=== PATIENT | male | born 1955 | race Caucasian/White ===

== ENCOUNTER 2022-03-08 19:20 | Inpatient (IN) ==
[2022-03-08 19:44] LABS: Basophils % 0.5 % (0.0-0.8); Eosinophils # 0.1 10*3/uL (0.0-0.87); Eosinophils % 0.9 % (0.00-10.9); Hematocrit 39.2 VOL% (42.0-52.0); Hemoglobin 13.3 GM/DL (14.0-18.0); Immature Granulocytes % 0.5 %; Immature Granulocytes Absolute 0.04 #; Lymphocytes # 1.9 10*3/uL (1.4-4.0); Lymphocytes % 21.5 % (21.2-54.2); Mean Corpuscular HGB Conc 33.9 GM/DL (32-36); Mean Corpuscular Volume 90.5 FL (87-102); Monocytes # 0.8 10*3/uL (0.11-0.8); Neutrophils % 67.6 % (38.7-73.9); Platelet Count 277 T/CUMM (130-400); Red Blood Count 4.33 MC/CUMM (3.8-5.5); White Blood Count 8.7 T/CUMM (4-12)
[2022-03-08 19:57] LABS: INR 0.9; PT Patient Result 10.3 SECS (10.5-12.0); Partial Thromboplastin Time 23.4 SECS (23.8-32.1)
[2022-03-08 20:25] LABS: Albumin 3.5 G/DL (3.4-5.0); Calcium 9.5 MG/DL (8.5-10.1); Osmolality,Calculated 298.1 MOS/KG (273-304); Potassium 3.5 MMOL/L (3.5-5.1); Total Protein 6.7 G/DL (6.4-8.2)
[2022-03-08] MEDS ORDERED: PANTOPRAZOLE 40 MG VIAL IV ONE (23:51)
[2022-03-08] MEDS ORDERED: ACETAMINOPHEN 325 MG TABLET PO PRN (23:51)
[2022-03-08] MEDS ORDERED: DEXTROSE 10% 250 ML BAG IV PRN (23:51)
[2022-03-08] MEDS ORDERED: hydrALAZINE 20 MG/1 ML VIAL IV PRN (23:51)
[2022-03-08] MEDS ORDERED: GLUCAGON 1 MG VIAL IM PRN (23:51)
[2022-03-08] MEDS ORDERED: MORPHINE 2 MG/1 ML SYRINGE IV PRN (23:51)
[2022-03-08] MEDS ORDERED: ONDANSETRON 4 MG/2 ML VIAL IV PRN (23:51)
[2022-03-09] MEDS: LACTATED RINGERS 1,000 ML IV SCH ×2 (00:30→16:23)
[2022-03-09 05:15] LABS: Basophils % 0.7 % (0.0-0.8); Eosinophils # 0.1 10*3/uL (0.0-0.87); Eosinophils % 2.1 % (0.00-10.9); Hematocrit 34.7 VOL% (42.0-52.0); Hemoglobin 11.7 GM/DL (14.0-18.0); Immature Granulocytes % 0.2 %; Immature Granulocytes Absolute 0.01 #; Lymphocytes # 1.6 10*3/uL (1.4-4.0); Mean Corpuscular HGB Conc 33.7 GM/DL (32-36); Mean Corpuscular Volume 91.6 FL (87-102); Mean Platelet Volume 10.5 FL (9.6-12.0); Monocytes # 0.5 10*3/uL (0.11-0.8); Monocytes % 8.3 % (1.7-12.7); Neutrophils % 62.7 % (38.7-73.9); Platelet Count 221 T/CUMM (130-400); Red Blood Count 3.79 MC/CUMM (3.8-5.5); Red Cell Distribution Width 13.1 % (9.3-17.3); White Blood Count 6.1 T/CUMM (4-12)
[2022-03-09 05:31] LABS: Osmolality,Calculated 298.1 MOS/KG (273-304); Potassium 3.3 MMOL/L (3.5-5.1)
[2022-03-09] MEDS ORDERED: POTASSIUM CHLORIDE 20 MEQ TABLET PO PRN (07:36)
[2022-03-09] MEDS: PANTOPRAZOLE 40 MG VIAL IV SCH ×2 (08:34→21:01)
[2022-03-09] MEDS ORDERED: MAGNESIUM SULF RIDER 2 GM/50 ML PREMIX IV PRN (10:11)
[2022-03-09] MEDS ORDERED: MAGNESIUM SULF RIDER 4 GM/100 ML PREMIX IV PRN (10:11)
[2022-03-09 14:04] LABS: Hematocrit 34.1 VOL% (42.0-52.0); Hemoglobin 11.4 GM/DL (14.0-18.0)
[2022-03-09] MEDS: CALCIUM (CARBONATE)/VITAMIN D 600 MG-400 UNIT TABLET PO SCH (17:24)
[2022-03-09] MEDS: cefTRIAXone 2,000 MG in SODIUM CHLORIDE 0.9% 100 ML IV SCH (17:24)
[2022-03-09] MEDS: CETIRIZINE 10 MG TABLET PO SCH (20:58)
[2022-03-09] MEDS: DOCUSATE SODIUM 100 MG CAPSULE PO SCH (20:58)
[2022-03-09] MEDS: ATORVASTATIN 40 MG TABLET PO SCH (20:58)
[2022-03-10] MEDS: LACTATED RINGERS 1,000 ML IV SCH ×2 (03:10→21:28)
[2022-03-10 05:41] LABS: Basophils % 0.6 % (0.0-0.8); Eosinophils # 0.2 10*3/uL (0.0-0.87); Eosinophils % 3.2 % (0.00-10.9); Hematocrit 32.1 VOL% (42.0-52.0); Hemoglobin 10.6 GM/DL (14.0-18.0); Immature Granulocytes % 0.2 %; Immature Granulocytes Absolute 0.01 #; Lymphocytes # 1.4 10*3/uL (1.4-4.0); Lymphocytes % 30.8 % (21.2-54.2); Mean Corpuscular Volume 91.7 FL (87-102); Mean Platelet Volume 10.3 FL (9.6-12.0); Monocytes # 0.4 10*3/uL (0.11-0.8); Monocytes % 8.3 % (1.7-12.7); Neutrophils % 56.9 % (38.7-73.9); Platelet Count 205 T/CUMM (130-400); Red Cell Distribution Width 13.1 % (9.3-17.3); White Blood Count 4.7 T/CUMM (4-12)
[2022-03-10 05:57] LABS: Calcium 8.7 MG/DL (8.5-10.1); Potassium 3.7 MMOL/L (3.5-5.1)
[2022-03-10 06:02] LABS: Osmolality,Calculated 289.1 MOS/KG (273-304)
[2022-03-10] MEDS ORDERED: propofoL 200 MG/20 ML VIAL IV ONE (08:27)
[2022-03-10] MEDS ORDERED: ETOMIDATE 20 MG/10 ML VIAL IV ONE (08:27)
[2022-03-10] MEDS ORDERED: LIDOCAINE 2% 5 ML VIAL ONE (08:27)
[2022-03-10] MEDS: CALCIUM (CARBONATE)/VITAMIN D 600 MG-400 UNIT TABLET PO SCH ×2 (09:45→18:23)
[2022-03-10] MEDS: DOCUSATE SODIUM 100 MG CAPSULE PO SCH ×2 (09:45→21:03)
[2022-03-10] MEDS: amLODIPine 10 MG TABLET PO SCH (09:45)
[2022-03-10] MEDS: TAMSULOSIN 0.4 MG CAPSULE PO SCH (09:45)
[2022-03-10] MEDS: cefTRIAXone 2,000 MG in SODIUM CHLORIDE 0.9% 100 ML IV SCH (09:46)
[2022-03-10] MEDS: PANTOPRAZOLE 40 MG VIAL IV SCH ×2 (09:47→21:06)
[2022-03-10] MEDS ORDERED: BISACODYL 5 MG TABLET PO ONE (13:00)
[2022-03-10] MEDS ORDERED: POLYETHYLENE GLYCOL POWDER 255 GM BOTTLE PO ONE (18:00)
[2022-03-10] MEDS: CETIRIZINE 10 MG TABLET PO SCH (21:03)
[2022-03-10] MEDS: ATORVASTATIN 40 MG TABLET PO SCH (21:03)
[2022-03-11 05:12] LABS: Basophils % 0.9 % (0.0-0.8); Eosinophils # 0.2 10*3/uL (0.0-0.87); Hemoglobin 10.1 GM/DL (14.0-18.0); Immature Granulocytes % 0.2 %; Immature Granulocytes Absolute 0.01 #; Lymphocytes # 1.5 10*3/uL (1.4-4.0); Mean Corpuscular HGB Conc 33.7 GM/DL (32-36); Mean Corpuscular Volume 91.2 FL (87-102); Mean Platelet Volume 10.4 FL (9.6-12.0); Monocytes # 0.4 10*3/uL (0.11-0.8); Monocytes % 8.4 % (1.7-12.7); Neutrophils % 53.5 % (38.7-73.9); Platelet Count 186 T/CUMM (130-400); Red Blood Count 3.29 MC/CUMM (3.8-5.5); White Blood Count 4.5 T/CUMM (4-12)
[2022-03-11 05:18] LABS: INR 0.9; PT Patient Result 10.4 SECS (10.5-12.0)
[2022-03-11 05:26] LABS: Calcium 8.6 MG/DL (8.5-10.1); Potassium 3.6 MMOL/L (3.5-5.1)
[2022-03-11] MEDS ORDERED: LACTATED RINGERS 1,000 ML IV SCH (08:00)
[2022-03-11] MEDS: LACTATED RINGERS 1,000 ML IV SCH (09:28)
[2022-03-11] MEDS: CALCIUM (CARBONATE)/VITAMIN D 600 MG-400 UNIT TABLET PO SCH ×2 (09:34→18:42)
[2022-03-11] MEDS: TAMSULOSIN 0.4 MG CAPSULE PO SCH (11:25)
[2022-03-11] MEDS: amLODIPine 10 MG TABLET PO SCH (11:25)
[2022-03-11] MEDS: DOCUSATE SODIUM 100 MG CAPSULE PO SCH ×2 (11:25→21:13)
[2022-03-11] MEDS: cefTRIAXone 2,000 MG in SODIUM CHLORIDE 0.9% 100 ML IV SCH (11:26)
[2022-03-11] MEDS: PANTOPRAZOLE 40 MG VIAL IV SCH ×2 (11:45→21:13)
[2022-03-11] MEDS ORDERED: POLYETHYLENE GLYCOL POWDER 255 GM BOTTLE PO ONE (17:00)
[2022-03-11] MEDS: CETIRIZINE 10 MG TABLET PO SCH (21:13)
[2022-03-11] MEDS: ATORVASTATIN 40 MG TABLET PO SCH (21:13)
[2022-03-12 06:17] LABS: Basophils % 0.7 % (0.0-0.8); Eosinophils # 0.2 10*3/uL (0.0-0.87); Eosinophils % 4.8 % (0.00-10.9); Hematocrit 31.6 VOL% (42.0-52.0); Hemoglobin 10.8 GM/DL (14.0-18.0); Immature Granulocytes % 0.2 %; Immature Granulocytes Absolute 0.01 #; Lymphocytes # 1.4 10*3/uL (1.4-4.0); Lymphocytes % 30.3 % (21.2-54.2); Mean Corpuscular HGB Conc 34.2 GM/DL (32-36); Mean Corpuscular Volume 91.1 FL (87-102); Mean Platelet Volume 10.2 FL (9.6-12.0); Monocytes # 0.4 10*3/uL (0.11-0.8); Monocytes % 9.2 % (1.7-12.7); Neutrophils % 54.8 % (38.7-73.9); Platelet Count 199 T/CUMM (130-400); Red Blood Count 3.47 MC/CUMM (3.8-5.5); Red Cell Distribution Width 12.9 % (9.3-17.3); White Blood Count 4.6 T/CUMM (4-12)
[2022-03-12 06:32] LABS: Calcium 8.9 MG/DL (8.5-10.1); Osmolality,Calculated 280.1 MOS/KG (273-304); Potassium 3.9 MMOL/L (3.5-5.1)
[2022-03-12] MEDS ORDERED: LACTATED RINGERS 1,000 ML IV SCH (07:30)
[2022-03-12] MEDS ORDERED: propofoL 200 MG/20 ML VIAL IV ONE (09:03)
[2022-03-12] MEDS: CALCIUM (CARBONATE)/VITAMIN D 600 MG-400 UNIT TABLET PO SCH (10:45)
[2022-03-12] MEDS: DOCUSATE SODIUM 100 MG CAPSULE PO SCH (10:46)
[2022-03-12] MEDS: TAMSULOSIN 0.4 MG CAPSULE PO SCH (10:46)
[2022-03-12] MEDS: amLODIPine 10 MG TABLET PO SCH (10:46)
[2022-03-12] MEDS: PANTOPRAZOLE 40 MG VIAL IV SCH (10:51)
[2022-03-12 11:51] VITALS: BP 147/76
== END 2022-03-12 13:50 | disposition home or self-care (01) | DRG 378 ==
LOC: N.ED 19:20 → N.EDINP 19:20 → N.5E 03-09 01:31 → SUATTDRO 03-09 13:06
PROVIDERS: ADMIT Internal Medicine; ATTEND Internal Medicine